=== PATIENT | female | born 1975 | race Caucasian/White ===

== ENCOUNTER 2019-04-15 13:34 | Emergency (ER) | payer OTHER ==
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
--- NOTE | 2019-04-15 15:32 | RAD REPORT ---
EXAM DESCRIPTION: Gama Pa And Lat (2 Views)04/15/2019 2:46 pm CLINICAL HISTORY: Chest pain COMPARISON: None FINDINGS: Right lateral costophrenic sulcus is not included on the film and is not evaluated. The visualized lungs appear clear of acute infiltrate. Heart is normal size IMPRESSION: No acute abnormalities displayed
[2019-04-15 15:49] VITALS: TEMP 97.8; O2SAT 99
[2019-04-15 15:51] VITALS: BP 137/85
== END 2019-04-15 15:29 | disposition home or self-care (01) ==
LOC: ER 13:34
DX: M79.10 Myalgia, unspecified site (principal); V43.52XA Car driver injured in collision with other type car in traffic accident, initial encounter; Y92.410 Unspecified street and highway as the place of occurrence of the external cause
CPT/HCPCS: 70450; 71046; 72125; 99283